=== PATIENT | female | born 1945 | race Caucasian/White ===

== ENCOUNTER 2021-10-21 08:21 | Outpatient (CLI) | payer MEDICARE, BC | END 2021-10-21 08:22 | disposition home or self-care (01) | LOC: CSHULT 08:21 | PROVIDERS: ATTEND Internal Medicine | DX: E04.2 Nontoxic multinodular goiter (principal) | CPT/HCPCS: 76536 ==

== ENCOUNTER 2023-01-12 09:00 | Outpatient (CLI) | payer MEDICARE, BC | END 2023-01-12 09:01 | disposition home or self-care (01) | LOC: CSHMAMMO 09:00 | PROVIDERS: ATTEND Internal Medicine | DX: Z13.820 Encounter for screening for osteoporosis (principal); N63.25 Unspecified lump in the left breast, overlapping quadrants; M85.852 Other specified disorders of bone density and structure, left thigh; Z78.0 Asymptomatic menopausal state | CPT/HCPCS: 76642; 77066; 77080; G0279 ==